=== PATIENT | female | born 1955 | race Caucasian/White ===

== ENCOUNTER → 2018-06-10 | Outpatient (CLI) | payer OTHER ==
--- NOTE | 2018-06-10 15:03 | Diagnostic Imaging Report ---
Exam: Right RIBS with chest radiograph History: Right rib contusion Comparison: None. Findings: Chest: The lungs are well-inflated. No airspace consolidation, pleural effusion, or pneumothorax. Linear and patchy opacity in the right lung base. Opacity along the right pericardiophrenic angle likely reflects prominent epicardial fat. Cardiomediastinal contour and pulmonary vasculature are otherwise within normal limits. There is an acute minimally displaced fracture of the posterior lateral right third rib, as well as minimally displaced segmental fractures of the right posterior lateral fifth, sixth, and seventh ribs. Impression: Acute, minimally displaced fractures of the right third, fifth, sixth, and seventh ribs as described above, without pneumothorax. Patchy opacity in the right lung base likely reflects subsegmental atelectasis, possibly with superimposed pulmonary contusion. Signed by: Dr. Hima Rodriguez M.D. on 06/10/2018 3:00 PM
== END ==
LOC: RAD 13:27
PROVIDERS: ATTEND Internal Medicine
DX: S22.41XA Multiple fractures of ribs, right side, initial encounter for closed fracture (principal)
CPT/HCPCS: 71101

== ENCOUNTER → 2022-08-29 | Outpatient (CLI) | payer MEDICARE | LOC: US 11:37 | PROVIDERS: ATTEND Urology | DX: R31.21 Asymptomatic microscopic hematuria (principal) | CPT/HCPCS: 74018; 76770 ==

== ENCOUNTER 2023-10-14 11:52 | Inpatient (IN) | payer MEDICARE ==
[2023-10-10 12:18] LABS: BASOPHILS % 0.4 % (0.0-1.0); EOSINOPHILS # (AUTO) 0.1 (0.0-0.4); EOSINOPHILS % 1.1 % (0.0-6.0); HEMATOCRIT 37.9 % (34.2-44.1); HEMOGLOBIN 11.1 g/dL (12.0-16.0); LYMPHOCYTES # (AUTO) 1.5 (1.0-3.2); LYMPHOCYTES % 27.9 % (18.0-39.1); MEAN CORPUSCULAR HEMOGLOBIN 24.5 pg (28-32); MEAN CORPUSCULAR HGB CONC 29.3 g/dL (31-35); MEAN CORPUSCULAR VOLUME 83.7 fL (81-99); MONOCYTES # (AUTO) 0.4 (0.2-0.8); NEUTROPHILS # (AUTO) 3.4 (2.1-6.9); NEUTROPHILS % 62.1 % (38.7-80.0); PLATELET COUNT 327 x10e3/uL (140-360); RED BLOOD COUNT 4.53 x10e6/uL (3.6-5.1); RED CELL DISTRIBUTION WIDTH 14.9 % (11.7-14.4); WHITE BLOOD COUNT 5.51 x10e3/uL (4.8-10.8)
[2023-10-10 12:34] LABS: ANION GAP 15.1 mmol/L (8-16); CALCIUM 9.2 mg/dL (8.4-10.2); CREATININE, SERUM 0.9 mg/dL (0.57-1.11); POTASSIUM 5.1 mmol/L (3.5-5.1)
[~2023-10-14] VITALS: Ht 157.5 cm; Wt 46.3 kg
[~2023-10-14 11:52] MED LIST: CALCIUM PO; FENOFIBRATE160 MG PO; JARDIANCE10 MG PO; LISINOPRIL5 MG PO; METFORMIN HCL500 MG PO; MULTI-VITAMIN1 EACH PO; OMEPRAZOLE40 MG PO; OZEMPIC0.25 MG/0. SC; PRAVASTATIN SOD80 MG PO; PROPRANOLOL HCL40 MG PO; TYLENOL EXTRA500 MG PO; VITAMIN B-121000 MCG PO; VITAMIN D310 MCG PEG
[2023-10-14] MEDS ORDERED: LIDOCAINE HCL 2% LOCAL INJ 5 ML SDV VIAL INJ ONE (11:53)
[2023-10-14] MEDS ORDERED: EPHEDRINE SULFATE INJ 50 MG/ML VIAL ONE (11:53)
[2023-10-14] MEDS ORDERED: DEXAMETHASONE SOD PHOS INJ 4 MG/ML SDV ONE (11:53)
[2023-10-14] MEDS ORDERED: ONDANSETRON HCL INJ 2MG/ML 2ML 2 MG/ML VIAL ONE (11:53)
[2023-10-14] MEDS ORDERED: SEVOFLURANE INHAL SOLN 250 ML PEN BTL ONE (11:53)
[2023-10-14] MEDS ORDERED: PROPOFOL IV EMULSION 10 MG/ML 20 ML VIAL ONE (11:53)
[2023-10-14] MEDS ORDERED: FENTANYL CITRATE/PF 100MCG/2 ML INJ ONE (12:15)
[2023-10-14] MEDS ORDERED: TYLENOL PM EXS1 EACH PO (12:20)
[2023-10-14] MEDS: LACTATED RINGER'S 1,000 ML ONE (12:25)
[2023-10-14] MEDS: GENTAMICIN 80MG/NS 100 ML 200 ML IV ONE (12:25)
[2023-10-14] MEDS: CLINDAMYCIN 600MG / 50ML 50 ML IV ONE (12:25)
[2023-10-14] MEDS ORDERED: IOPAMIDOL 610MG/1ML 300 MG/ML VIAL IV ONE (12:29)
[2023-10-14] MEDS ORDERED: BUPIVACAINE HCL 0.5% INJ 30 ML VIAL INJ ONE (12:30)
[2023-10-14] MEDS ORDERED: BACITRACIN ZINC 15 GM OINT ONE (12:30)
[2023-10-14] MEDS ORDERED: LIDOCAINE 2%/ EPINEPHRINE 20ML MDV ONE (12:30)
[2023-10-14] MEDS ORDERED: GENTAMICIN SULFATE 40 MG/ML 2 ML VIAL ONE (12:31)
[2023-10-14] MEDS ORDERED: ONDANSETRON HCL INJ 2MG/ML 2ML 2 MG/ML VIAL IV PRN (18:00)
[2023-10-14] MEDS ORDERED: DIPHENHYDRAMINE HCL 25 MG CAP PO PRN (18:00)
[2023-10-14 18:10] LABS: BASOPHILS % 0.4 % (0.0-1.0); EOSINOPHILS % 0.4 % (0.0-6.0); HEMATOCRIT 33.8 % (34.2-44.1); LYMPHOCYTES # (AUTO) 0.8 (1.0-3.2); LYMPHOCYTES % 16.8 % (18.0-39.1); MEAN CORPUSCULAR HEMOGLOBIN 24.4 pg (28-32); MEAN CORPUSCULAR HGB CONC 29.6 g/dL (31-35); MEAN CORPUSCULAR VOLUME 82.6 fL (81-99); MONOCYTES # (AUTO) 0.1 (0.2-0.8); MONOCYTES % 2.2 % (4.4-11.3); NEUTROPHILS % 79.6 % (38.7-80.0); PLATELET COUNT 288 x10e3/uL (140-360); RED BLOOD COUNT 4.09 x10e6/uL (3.6-5.1); WHITE BLOOD COUNT 5.01 x10e3/uL (4.8-10.8)
[2023-10-14 18:14] VITALS: BP 118/68; PULSE 62; RESP 17; TEMP 97.8; O2SAT 98
[2023-10-14 18:22] LABS: ANION GAP 13.6 mmol/L (8-16); CALCIUM 8.7 mg/dL (8.4-10.2); CREATININE, SERUM 0.82 mg/dL (0.57-1.11); POTASSIUM 4.6 mmol/L (3.5-5.1)
[2023-10-14] MEDS: SODIUM CHLORIDE 0.9% 1000ML 1,000 ML IV SCH (18:49)
[2023-10-14 19:19] VITALS: PULSE 76; RESP 16; O2SAT 96
[2023-10-14] MEDS: ACETAMINOPHEN 1000 MG/100 ML IV PRN (19:42)
[2023-10-14 19:43] VITALS: BP 117/73; PULSE 78; RESP 18; TEMP 97.4; O2SAT 100
[2023-10-14] MEDS: LISINOPRIL 2.5 MG TAB PO SCH (22:26)
[2023-10-14] MEDS: SIMVASTATIN 40 MG TAB PO SCH (22:27)
[2023-10-14] MEDS: TRAMADOL HCL 50 MG TAB PO PRN (22:44)
[2023-10-14 23:01] VITALS: BP 117/73; PULSE 78; RESP 18; TEMP 97.4; O2SAT 100
[2023-10-14 23:30] VITALS: BP 93/65; PULSE 78; RESP 18; TEMP 97.9; O2SAT 100
[2023-10-15] VITALS (11 sets, daily range): BP systolic 76–99; BP diastolic 51–63; PULSE 80–104; RESP 16–20; TEMP 97.8–99.4; O2SAT 93–100
[2023-10-15 05:14] LABS: BASOPHILS % 0.2 % (0.0-1.0); EOSINOPHILS % 0.1 % (0.0-6.0); HEMATOCRIT 26.8 % (34.2-44.1); LYMPHOCYTES % 9.7 % (18.0-39.1); MEAN CORPUSCULAR HEMOGLOBIN 24.5 pg (28-32); MEAN CORPUSCULAR HGB CONC 29.9 g/dL (31-35); MEAN CORPUSCULAR VOLUME 82.2 fL (81-99); MONOCYTES # (AUTO) 0.6 (0.2-0.8); MONOCYTES % 5.7 % (4.4-11.3); NEUTROPHILS # (AUTO) 8.9 (2.1-6.9); NEUTROPHILS % 83.8 % (38.7-80.0); PLATELET COUNT 302 x10e3/uL (140-360); RED BLOOD COUNT 3.26 x10e6/uL (3.6-5.1); RED CELL DISTRIBUTION WIDTH 15.1 % (11.7-14.4); WHITE BLOOD COUNT 10.59 x10e3/uL (4.8-10.8)
[2023-10-15 05:50] LABS: ANION GAP 12.4 mmol/L (8-16); CALCIUM 8.1 mg/dL (8.4-10.2); CREATININE, SERUM 0.77 mg/dL (0.57-1.11); POTASSIUM 4.4 mmol/L (3.5-5.1)
[2023-10-15 08:40] LABS: LYMPHOCYTES % (MANUAL) 9 % (19-48); MONOCYTES % (MANUAL) 5 % (3.4-9.0); NEUTROPHILS % (MANUAL) 86 % (40-74); PLATELET ESTIMATE ADEQUATE; PLATELET MORPHOLOGY COMMENT NORMAL; RBC MORPHOLOGY COMMENT NORMAL
[2023-10-15] MEDS ORDERED: PROPRANOLOL HCL 40 MG TAB PO SCH (09:00)
[2023-10-15] MEDS: PANTOPRAZOLE SODIUM 20 MG TABLET.DR PO SCH (09:34)
[2023-10-15] MEDS: SENNA-S TABLET PO SCH (09:34)
[2023-10-15] MEDS: CYANOCOBALAMIN 1,000 MCG TAB PO SCH (09:34)
[2023-10-15] MEDS ORDERED: DEXTROSE 50% SYRINGE 50 ML IV PRN (13:15)
[2023-10-15] MEDS: MAGNESIUM HYDROXIDE 30 ML UDC PO ONE (16:27)
[2023-10-15] MEDS: INSULIN LISPRO 100 UNIT/1 ML 3ML VIAL SQ SCH (16:29)
[2023-10-15 20:28] LABS: BASOPHILS % 0.2 % (0.0-1.0); EOSINOPHILS % 0.5 % (0.0-6.0); HEMATOCRIT 24.9 % (34.2-44.1); HEMOGLOBIN 7.4 g/dL (12.0-16.0); LYMPHOCYTES # (AUTO) 1.5 (1.0-3.2); LYMPHOCYTES % 18.4 % (18.0-39.1); MEAN CORPUSCULAR HEMOGLOBIN 24.6 pg (28-32); MEAN CORPUSCULAR HGB CONC 29.7 g/dL (31-35); MEAN CORPUSCULAR VOLUME 82.7 fL (81-99); MONOCYTES # (AUTO) 0.4 (0.2-0.8); NEUTROPHILS # (AUTO) 6.2 (2.1-6.9); NEUTROPHILS % 75.5 % (38.7-80.0); PLATELET COUNT 260 x10e3/uL (140-360); RED BLOOD COUNT 3.01 x10e6/uL (3.6-5.1); RED CELL DISTRIBUTION WIDTH 15.3 % (11.7-14.4); WHITE BLOOD COUNT 8.25 x10e3/uL (4.8-10.8)
[2023-10-15] MEDS: SODIUM CHLORIDE 0.9% 250ML 250 ML IV ONE (21:49)
[2023-10-16] VITALS (7 sets, daily range): BP systolic 83–107; BP diastolic 47–71; PULSE 89–104; RESP 16–18; TEMP 97.9–99.3; O2SAT 96–100
[2023-10-16 05:29] LABS: BASOPHILS % 0.3 % (0.0-1.0); EOSINOPHILS % 0.6 % (0.0-6.0); HEMOGLOBIN 6.7 g/dL (12.0-16.0); LYMPHOCYTES # (AUTO) 1.6 (1.0-3.2); LYMPHOCYTES % 21.9 % (18.0-39.1); MEAN CORPUSCULAR HEMOGLOBIN 24.5 pg (28-32); MEAN CORPUSCULAR HGB CONC 29.6 g/dL (31-35); MEAN CORPUSCULAR VOLUME 82.5 fL (81-99); MONOCYTES # (AUTO) 0.5 (0.2-0.8); MONOCYTES % 6.9 % (4.4-11.3); NEUTROPHILS % 69.7 % (38.7-80.0); PLATELET COUNT 258 x10e3/uL (140-360); RED BLOOD COUNT 2.74 x10e6/uL (3.6-5.1); RED CELL DISTRIBUTION WIDTH 15.3 % (11.7-14.4); WHITE BLOOD COUNT 7.21 x10e3/uL (4.8-10.8)
[2023-10-16 05:38] LABS: HEMATOCRIT 22.6 % (34.2-44.1)
[2023-10-16 06:02] LABS: ALBUMIN 2.3 g/dL (3.5-5.0); ALBUMIN/GLOBULIN RATIO 1.1 (0.8-2.0); ALKALINE PHOSPHATASE 30 IU/L (40-150); ANION GAP 11.9 mmol/L (8-16); BILIRUBIN,TOTAL 0.3 mg/dL (0.2-1.2); BLOOD UREA NITROGEN 14 mg/dL (7-26); BUN/CREATININE RATIO 18 (6-25); CALCIUM 7.7 mg/dL (8.4-10.2); CARBON DIOXIDE 20 mmol/L (22-29); CHLORIDE 113 mmol/L (98-107); EST GLOMERULAR FILTRATION RATE 80 ML/MIN (>=60); GLUCOSE 174 mg/dL (74-118); MAGNESIUM 1.3 MG/DL (1.3-2.1); POTASSIUM 3.9 mmol/L (3.5-5.1); SODIUM 141 mmol/L (136-145); TOTAL PROTEIN 4.4 g/dL (6.5-8.1)
[2023-10-16 06:25] LABS: ALANINE AMINOTRANSFERASE < 6 IU/L (0-55)
[2023-10-16] MEDS: MAGNESIUM SULFATE 2GM/50ML 50 ML IV ONE (09:16)
[2023-10-16] MEDS: BISACODYL 10 MG SUPP PR ONE (09:20)
[2023-10-16] MEDS: BISACODYL 5 MG TAB EC PO ONE (09:20)
[2023-10-16] MEDS: MAGNESIUM HYDROXIDE 30 ML UDC PO PRN (10:48)
[2023-10-16] MEDS: MINERAL OIL 132 ML BTL PR ONE (10:48)
[2023-10-16] MEDS ORDERED: SODIUM CHLORIDE 0.9% 250ML 250 ML ONE (13:35)
[2023-10-16] MEDS: SODIUM CHLORIDE 0.9% 250ML 250 ML IV ONE ×2 (14:10→22:40)
[2023-10-16] MEDS: HETASTARCH 6%/NACL INJ 500 ML IV ONE (20:01)
[2023-10-17] VITALS (10 sets, daily range): BP systolic 102–143; BP diastolic 61–87; PULSE 62–102; RESP 16–19; TEMP 97.7–209.1; O2SAT 89–100
[2023-10-17] MEDS ORDERED: CIPROFLOXACIN 400 MG/D5W 200ML 200 ML IV ONE (00:57)
[2023-10-17] MEDS: CIPROFLOXACIN 200 MG/D5W 100ML 100 ML IV SCH (01:07)
[2023-10-17] MEDS: SODIUM CHLORIDE 0.9% 250ML 250 ML ONE (01:51)
[2023-10-17] MEDS: MAGNESIUM HYDROXIDE 30 ML UDC PO ONE (03:27)
[2023-10-17] MEDS: BISACODYL 10 MG SUPP PR ONE (03:27)
[2023-10-17 05:02] LABS: BASOPHILS % 0.4 % (0.0-1.0); EOSINOPHILS # (AUTO) 0.1 (0.0-0.4); HEMATOCRIT 33.6 % (34.2-44.1); HEMOGLOBIN 10.3 g/dL (12.0-16.0); LYMPHOCYTES # (AUTO) 1.2 (1.0-3.2); LYMPHOCYTES % 24.2 % (18.0-39.1); MEAN CORPUSCULAR HEMOGLOBIN 26.5 pg (28-32); MEAN CORPUSCULAR HGB CONC 30.7 g/dL (31-35); MEAN CORPUSCULAR VOLUME 86.4 fL (81-99); MONOCYTES # (AUTO) 0.3 (0.2-0.8); MONOCYTES % 5.9 % (4.4-11.3); NEUTROPHILS # (AUTO) 3.4 (2.1-6.9); NEUTROPHILS % 67.1 % (38.7-80.0); PLATELET COUNT 229 x10e3/uL (140-360); RED BLOOD COUNT 3.89 x10e6/uL (3.6-5.1); RED CELL DISTRIBUTION WIDTH 16.4 % (11.7-14.4); WHITE BLOOD COUNT 5.08 x10e3/uL (4.8-10.8)
[2023-10-17 05:22] LABS: ANION GAP 11.9 mmol/L (8-16); CALCIUM 8.1 mg/dL (8.4-10.2); CREATININE, SERUM 0.72 mg/dL (0.57-1.11); POTASSIUM 3.9 mmol/L (3.5-5.1)
[2023-10-17] MEDS ORDERED: MAGNESIUM SULFATE 2GM/50ML 50 ML IV ONE (09:00)
[2023-10-17] MEDS: ONDANSETRON HCL 4 MG ORAL DISINTEGRATING TAB PO PRN (09:11)
[2023-10-17] MEDS: FUROSEMIDE INJ 10 MG/ML 4 ML VIAL IV ONE (09:55)
[2023-10-17] MEDS: MAGNESIUM SULFATE 2GM/50ML 50 ML IV ONE (16:18)
[2023-10-18] VITALS (9 sets, daily range): BP systolic 96–137; BP diastolic 65–76; PULSE 73–91; RESP 16–18; TEMP 97.4–98.4; O2SAT 93–100
[2023-10-18 06:18] LABS: BASOPHILS % 0.2 % (0.0-1.0); EOSINOPHILS # (AUTO) 0.1 (0.0-0.4); EOSINOPHILS % 2.6 % (0.0-6.0); HEMATOCRIT 33.2 % (34.2-44.1); HEMOGLOBIN 10.4 g/dL (12.0-16.0); LYMPHOCYTES # (AUTO) 1.2 (1.0-3.2); LYMPHOCYTES % 26.2 % (18.0-39.1); MEAN CORPUSCULAR HEMOGLOBIN 26.7 pg (28-32); MEAN CORPUSCULAR HGB CONC 31.3 g/dL (31-35); MEAN CORPUSCULAR VOLUME 85.3 fL (81-99); MONOCYTES # (AUTO) 0.5 (0.2-0.8); MONOCYTES % 10.8 % (4.4-11.3); NEUTROPHILS # (AUTO) 2.8 (2.1-6.9); PLATELET COUNT 259 x10e3/uL (140-360); RED BLOOD COUNT 3.89 x10e6/uL (3.6-5.1); RED CELL DISTRIBUTION WIDTH 16.5 % (11.7-14.4); WHITE BLOOD COUNT 4.62 x10e3/uL (4.8-10.8)
[2023-10-18 06:52] LABS: ALBUMIN 2.9 g/dL (3.5-5.0); ALBUMIN/GLOBULIN RATIO 1.3 (0.8-2.0); ANION GAP 12.8 mmol/L (8-16); BILIRUBIN,TOTAL 0.5 mg/dL (0.2-1.2); CALCIUM 8.9 mg/dL (8.4-10.2); CREATININE, SERUM 0.83 mg/dL (0.57-1.11); MAGNESIUM 1.6 MG/DL (1.3-2.1); POTASSIUM 3.8 mmol/L (3.5-5.1); TOTAL PROTEIN 5.1 g/dL (6.5-8.1)
[2023-10-18] MEDS: PHENAZOPYRIDINE HCL 100 MG TAB PO PRN (09:56)
[2023-10-18] MEDS: ONDANSETRON HCL INJ 2MG/ML 2ML 2 MG/ML VIAL IV PRN (11:13)
[2023-10-18] MEDS: FAMOTIDINE 20 MG/2 ML VIAL IV STA (11:13)
[2023-10-18] MEDS: MECLIZINE HCL 12.5 MG TAB PO ONE (14:23)
[2023-10-18] MEDS ORDERED: ONDANSETRON HCL INJ 2MG/ML 2ML 2 MG/ML VIAL IV PRN (16:15)
[2023-10-18] MEDS: SODIUM CHLORIDE 0.9% 1000ML 1,000 ML IV SCH (16:31)
[2023-10-18] MEDS ORDERED: MECLIZINE HCL 12.5 MG TAB PO SCH (17:00)
[2023-10-18] MEDS: ACETAMINOPHEN 325 MG TAB PO PRN (17:01)
[2023-10-18] MEDS: FAMOTIDINE 20 MG/2 ML VIAL IV SCH (19:51)
[2023-10-18] MEDS: MECLIZINE HCL 12.5 MG TAB PO SCH (22:11)
[2023-10-19] VITALS: BP 112/72; PULSE 89; RESP 18; TEMP 98.2; O2SAT 97
[2023-10-19 04:00] VITALS: BP 110/67; PULSE 98; RESP 18; TEMP 98.3; O2SAT 98
[2023-10-19 06:15] LABS: BASOPHILS % 0.5 % (0.0-1.0); EOSINOPHILS # (AUTO) 0.1 (0.0-0.4); EOSINOPHILS % 2.7 % (0.0-6.0); HEMOGLOBIN 10.9 g/dL (12.0-16.0); LYMPHOCYTES % 23.8 % (18.0-39.1); MEAN CORPUSCULAR HEMOGLOBIN 26.5 pg (28-32); MEAN CORPUSCULAR HGB CONC 30.3 g/dL (31-35); MEAN CORPUSCULAR VOLUME 87.4 fL (81-99); MONOCYTES # (AUTO) 0.5 (0.2-0.8); MONOCYTES % 12.3 % (4.4-11.3); NEUTROPHILS # (AUTO) 2.5 (2.1-6.9); NEUTROPHILS % 60.2 % (38.7-80.0); PLATELET COUNT 311 x10e3/uL (140-360); RED BLOOD COUNT 4.12 x10e6/uL (3.6-5.1); RED CELL DISTRIBUTION WIDTH 16.7 % (11.7-14.4); WHITE BLOOD COUNT 4.07 x10e3/uL (4.8-10.8)
[2023-10-19 06:40] LABS: ANION GAP 13.9 mmol/L (8-16); BILIRUBIN,TOTAL 0.5 mg/dL (0.2-1.2); CALCIUM 9.1 mg/dL (8.4-10.2); CREATININE, SERUM 0.81 mg/dL (0.57-1.11); POTASSIUM 3.9 mmol/L (3.5-5.1)
[2023-10-19 06:41] LABS: ALBUMIN/GLOBULIN RATIO 1.5 (0.8-2.0)
[2023-10-19 08:00] VITALS: BP 123/62; PULSE 72; RESP 18; TEMP 97.3; O2SAT 97
[2023-10-19 10:19] VITALS: PULSE 97; RESP 18; O2SAT 98
== END 2023-10-19 13:05 | disposition home or self-care (01) | DRG 748 ==
LOC: OR 11:52 → PACU V 15:04 → MED/SURG 18:16
PROVIDERS: ADMIT Internal Medicine; ATTEND Internal Medicine
PROC: 0TQB0ZZ Repair Bladder, Open Approach (ICD-10-PCS; 2023-10-14)
PROC: 0T788DZ Dilation of Bilateral Ureters with Intraluminal Device, Via Natural or Artificial Opening Endoscopic (ICD-10-PCS; 2023-10-14)
PROC: 0TNB0ZZ Release Bladder, Open Approach (ICD-10-PCS; 2023-10-14)
PROC: BT161ZZ Fluoroscopy of Right Ureter using Low Osmolar Contrast (ICD-10-PCS; 2023-10-14)
PROC: BT171ZZ Fluoroscopy of Left Ureter using Low Osmolar Contrast (ICD-10-PCS; 2023-10-14)
PROC: 0T9B70Z Drainage of Bladder with Drainage Device, Via Natural or Artificial Opening (ICD-10-PCS; 2023-10-14)
PROC: 0JQC0ZZ Repair Pelvic Region Subcutaneous Tissue and Fascia, Open Approach (ICD-10-PCS; principal; 2023-10-14 15:17)
PROC: 30233N1 Transfusion of Nonautologous Red Blood Cells into Peripheral Vein, Percutaneous Approach (ICD-10-PCS; 2023-10-16)
DX: N81.10 Cystocele, unspecified (principal); I50.31 Acute diastolic (congestive) heart failure; N39.0 Urinary tract infection, site not specified; D62 Acute posthemorrhagic anemia; E44.0 Moderate protein-calorie malnutrition; Z68.1 Body mass index [BMI] 19.9 or less, adult; I11.0 Hypertensive heart disease with heart failure; I95.89 Other hypotension; E11.42 Type 2 diabetes mellitus with diabetic polyneuropathy; N32.89 Other specified disorders of bladder; K59.00 Constipation, unspecified; E78.5 Hyperlipidemia, unspecified; K21.9 Gastro-esophageal reflux disease without esophagitis; M81.0 Age-related osteoporosis without current pathological fracture; B96.1 Klebsiella pneumoniae [K. pneumoniae] as the cause of diseases classified elsewhere; Z79.84 Long term (current) use of oral hypoglycemic drugs; Z79.85 Long-term (current) use of injectable non-insulin antidiabetic drugs; Z85.3 Personal history of malignant neoplasm of breast; Z87.440 Personal history of urinary (tract) infections; Z90.13 Acquired absence of bilateral breasts and nipples; Z90.49 Acquired absence of other specified parts of digestive tract; Z88.2 Allergy status to sulfonamides; Z88.5 Allergy status to narcotic agent; Z80.3 Family history of malignant neoplasm of breast; Z82.49 Family history of ischemic heart disease and other diseases of the circulatory system
CPT/HCPCS: 36415; 71046; 74019; 74420; 80048; 80053; 82948; 83735; 83880; 85025; 86850; 86900; 86920; 93005; 94799; 96372; 99252; C1758; C2617; J1100; J1580; J1940; J2001; J2405; J2543; J3475; J7030; J7050; P9016; Q0162

== ENCOUNTER → 2023-12-26 | Outpatient (REF) | payer MEDICARE ==
[~2023-12-26] MED LIST changes: +TYLENOL PM EXS1 EACH PO
== END ==
LOC: US 13:18
PROVIDERS: ATTEND Otolaryngology
DX: R22.1 Localized swelling, mass and lump, neck (principal)
CPT/HCPCS: 42400; 88305

== ENCOUNTER 2024-02-01 14:41 | Emergency (ER) | payer MEDICARE ==
[~2024-02-01] VITALS: Ht 157.5 cm; Wt 47.6 kg
[~2024-02-01 14:41] MED LIST changes: +CRESTOR40 MG PO; +GLIMEPIRIDE2 MG PO
[2024-02-01 15:56] VITALS: PULSE 82; RESP 16; TEMP 97.7
[2024-02-01] MEDS ORDERED: INSULIN REGULAR, HUMAN 100 UNIT/1 ML IV ONE (16:15)
[2024-02-01 17:12] LABS: BASOPHILS % 0.3 % (0.0-1.0); EOSINOPHILS % 0.3 % (0.0-6.0); HEMATOCRIT 38.9 % (34.2-44.1); HEMOGLOBIN 11.7 g/dL (12.0-16.0); LYMPHOCYTES % 24.7 % (18.0-39.1); MEAN CORPUSCULAR HEMOGLOBIN 26.5 pg (28-32); MEAN CORPUSCULAR HGB CONC 30.1 g/dL (31-35); MONOCYTES # (AUTO) 0.6 (0.2-0.8); MONOCYTES % 7.6 % (4.4-11.3); NEUTROPHILS # (AUTO) 5.3 (2.1-6.9); NEUTROPHILS % 66.5 % (38.7-80.0); PLATELET COUNT 372 x10e3/uL (140-360); RED BLOOD COUNT 4.42 x10e6/uL (3.6-5.1); RED CELL DISTRIBUTION WIDTH 14.6 % (11.7-14.4); WHITE BLOOD COUNT 7.98 x10e3/uL (4.8-10.8)
[2024-02-01] MEDS: SODIUM CHLORIDE 0.9% 1000ML 1,000 ML IV STA (17:36)
[2024-02-01 17:38] LABS: ALANINE AMINOTRANSFERASE 15 IU/L (0-55); ALBUMIN 3.6 g/dL (3.5-5.0); ALKALINE PHOSPHATASE 84 IU/L (40-150); ANION GAP 19.5 mmol/L (8-16); BILIRUBIN,TOTAL 0.2 mg/dL (0.2-1.2); BLOOD UREA NITROGEN 34 mg/dL (7-26); BUN/CREATININE RATIO 29 (6-25); CALCIUM 10.6 mg/dL (8.4-10.2); CARBON DIOXIDE 22 mmol/L (22-29); CHLORIDE 101 mmol/L (98-107); CREATININE, SERUM 1.17 mg/dL (0.57-1.11); EST GLOMERULAR FILTRATION RATE 51 ML/MIN (>=60); MAGNESIUM 1.4 MG/DL (1.3-2.1); POTASSIUM 4.5 mmol/L (3.5-5.1); SODIUM 138 mmol/L (136-145); TOTAL PROTEIN 7.2 g/dL (6.5-8.1)
[2024-02-01 17:43] LABS: GLUCOSE 491 mg/dL (74-118)
[2024-02-01 17:48] LABS: TROPONIN I < 0.001 ng/mL (0-0.300)
[2024-02-01] MEDS ORDERED: CEFDINIR300 MG PO (19:15)
[2024-02-01 19:46] VITALS: BP 144/90; O2SAT 99
== END 2024-02-01 19:47 | disposition home or self-care (01) ==
LOC: ER 15:14
DX: E11.65 Type 2 diabetes mellitus with hyperglycemia (principal); N39.0 Urinary tract infection, site not specified; I10 Essential (primary) hypertension; E78.5 Hyperlipidemia, unspecified; K21.9 Gastro-esophageal reflux disease without esophagitis
CPT/HCPCS: 36415; 80053; 82948; 83735; 84484; 85025; 99284; J0696; J7030

== ENCOUNTER → 2024-05-22 | Outpatient (REF) | payer MEDICARE ==
[~2024-05-22] MED LIST changes: +CEFDINIR300 MG PO
== END ==
LOC: RAD 10:36
PROVIDERS: ATTEND Internal Medicine
DX: R60.9 Edema, unspecified (principal); M79.672 Pain in left foot; M25.572 Pain in left ankle and joints of left foot
CPT/HCPCS: 93971

== ENCOUNTER → 2024-10-13 | Outpatient (REF) | payer MEDICARE | LOC: CT 11:12 | PROVIDERS: ATTEND Internal Medicine | DX: C82.90 Follicular lymphoma, unspecified, unspecified site (principal); R51.9 Headache, unspecified | CPT/HCPCS: 70450 ==

== ENCOUNTER 2024-10-30 10:52 | Day surgery (SDC) | payer MEDICARE ==
[2024-10-13 11:42] LABS: BASOPHILS % 0.5 % (0.0-1.0); EOSINOPHILS % 2.0 % (0.0-6.0); LYMPHOCYTES % 22.8 % (18.0-39.1); MONOCYTES % 9.2 % (4.4-11.3); NEUTROPHILS % 65.0 % (38.7-80.0); RED CELL DISTRIBUTION WIDTH 13.9 % (11.7-14.4)
[2024-10-13 12:13] LABS: EST GLOMERULAR FILTRATION RATE 59.0 ML/MIN (>=60)
[2024-10-13 12:44] LABS: INR 0.87
[2024-10-30] VITALS (20 sets, daily range): BP systolic 126–170; BP diastolic 74–103; PULSE 63–78; RESP 10–20; TEMP 97.2–97.3; O2SAT 96–100
[~2024-10-30] VITALS: Ht 157.5 cm; Wt 52.2 kg
[2024-10-30] MEDS ORDERED: DIOVAN80 MG PO (11:50)
[2024-10-30] MEDS ORDERED: HUMULIN R100 UNIT/2 INJ (11:50)
[2024-10-30] MEDS ORDERED: TRESIBA100 UNIT/1 (11:50)
[2024-10-30] MEDS ORDERED: HEPARIN SOD/SOD CHLORIDE 2,000 ML ONE (12:17)
[2024-10-30] MEDS ORDERED: LIDOCAINE HCL 2% LOCAL 20 ML VIAL ONE (12:17)
[2024-10-30] MEDS ORDERED: HEPARIN SOD (PORCINE) 1000 UNIT/ML 30ML ONE (12:17)
[2024-10-30] MEDS ORDERED: IOPAMIDOL 370 MG/ML 100 ML INFUS..BTL INJ ONE (12:17)
[2024-10-30] MEDS ORDERED: VERAPAMIL HCL 2.5 MG/ML 2 ML VIAL ONE (12:17)
[2024-10-30] MEDS ORDERED: NITROGLYCERIN/D5W 200 MCG/ML 250 ML ONE (12:18)
[2024-10-30] MEDS ORDERED: SODIUM CHLORIDE 0.9% 1000ML 1,000 ML ONE (12:18)
[2024-10-30] MEDS ORDERED: MIDAZOLAM HCL 2 MG/2 ML VIAL ONE (13:07)
[2024-10-30] MEDS ORDERED: FENTANYL CITRATE/PF 100MCG/2 ML INJ ONE (13:08)
[2024-10-30] MEDS ORDERED: TICAGRELOR 90 MG TABLET ONE (13:33)
[2024-10-30] MEDS ORDERED: ASPIRIN 325 MG TAB ONE (13:33)
[2024-12-15] MEDS ORDERED: PLAVIX75 MG PO (12:46)
== END 2024-10-30 19:30 | disposition home or self-care (01) ==
LOC: CATH LAB 10:52
PROVIDERS: ATTEND Internal Medicine Cardiovascular Disease
DX: I25.10 Atherosclerotic heart disease of native coronary artery without angina pectoris (principal); I10 Essential (primary) hypertension; E78.5 Hyperlipidemia, unspecified; E11.9 Type 2 diabetes mellitus without complications; Z01.812 Encounter for preprocedural laboratory examination; Z79.02 Long term (current) use of antithrombotics/antiplatelets; Z79.4 Long term (current) use of insulin; Z79.85 Long-term (current) use of injectable non-insulin antidiabetic drugs; Z79.899 Other long term (current) drug therapy
CPT/HCPCS: 93458; C9600; 36415; 76937; 80053; 82948; 85025; 85610; 92920; 99152; 99153; C1725; C1874; C1887; J1644; J2003; J2250; J7030; Q9967

== ENCOUNTER → 2024-12-17 | Day surgery (SDC) | payer MEDICARE ==
[2024-12-15 12:09] LABS: BASOPHILS % 0.5 % (0.0-1.0); EOSINOPHILS % 2.1 % (0.0-6.0); LYMPHOCYTES % 30.1 % (18.0-39.1); MONOCYTES % 9.3 % (4.4-11.3); NEUTROPHILS % 57.3 % (38.7-80.0); RED CELL DISTRIBUTION WIDTH 13.2 % (11.7-14.4)
[2024-12-15 13:00] LABS: INR 1.15
[2024-12-15 13:06] LABS: EST GLOMERULAR FILTRATION RATE 46.0 ML/MIN (>=60)
[2024-12-17] VITALS (22 sets, daily range): BP systolic 96–136; BP diastolic 57–80; PULSE 55–81; RESP 9–21; TEMP 97.5–98; O2SAT 97–100
[~2024-12-17] VITALS: Ht 157.5 cm; Wt 54.6 kg
[~2024-12-17] MED LIST changes: +ASPIRIN 325 MG TAB ONE; +ATROPINE SULFATE 0.1 MG/ML 10ML SYR ONE; +CLOPIDOGREL BISULFATE 75 MG TAB ONE; +DIOVAN80 MG PO; +FENTANYL CITRATE/PF 100MCG/2 ML INJ ONE; +HEPARIN SOD (PORCINE) 1000 UNIT/ML 30ML ONE; +HEPARIN SOD/SOD CHLORIDE 2,000 ML ONE; +HUMULIN R100 UNIT/2 INJ; +IOPAMIDOL 370 MG/ML 100 ML INFUS..BTL INJ ONE; +LIDOCAINE HCL 2% LOCAL 20 ML VIAL ONE; +MIDAZOLAM HCL 2 MG/2 ML VIAL ONE; +NITROGLYCERIN/D5W 200 MCG/ML 250 ML ONE; +PHENYLEPHRINE HCL 1% 10 MG/ML VIAL ONE; +PLAVIX75 MG PO; +SODIUM CHLORIDE 0.9% 100 ML ONE; +SODIUM CHLORIDE 0.9% 1000ML 1,000 ML ONE; +TRESIBA100 UNIT/1; +VERAPAMIL HCL 2.5 MG/ML 2 ML VIAL ONE
[2024-12-17] MEDS: Morphine 4mg INJECTION 4 MG/ML INJ ONE (11:14)
== END | disposition home or self-care (01) ==
LOC: CATH LAB 06:27
PROVIDERS: ATTEND Internal Medicine Cardiovascular Disease
DX: I25.10 Atherosclerotic heart disease of native coronary artery without angina pectoris (principal); Z01.812 Encounter for preprocedural laboratory examination; Z79.02 Long term (current) use of antithrombotics/antiplatelets; Z79.4 Long term (current) use of insulin; Z79.85 Long-term (current) use of injectable non-insulin antidiabetic drugs; Z79.899 Other long term (current) drug therapy
CPT/HCPCS: 93454; C9600; C9601; 36415; 80053; 85025; 85610; 92928; 99152; 99153; C1725; C1769; C1874; C1887; J1644; J2003; J2250; J2270; J2371; J7030; J7050; Q9967